=== PATIENT | male | born 1950 | race Hispanic/Latino ===

== ENCOUNTER 2017-12-30 15:47 | Emergency (ER) | payer OTHER ==
[2017-12-30] MEDS ORDERED: TETANUS/DIPHTHERIA TOXOID [ADULT] 0.5 ML VIAL IM ONE (16:03)
[2017-12-30] MEDS ORDERED: CEFAZOLIN SODIUM 1 GM VIAL ONE (16:32)
[2017-12-30] MEDS ORDERED: MORPHINE SULFATE 4 MG/1ML SYG ONE (16:32)
[2017-12-30] MEDS ORDERED: ONDANSETRON HCL 4 MG/2 ML VIAL ONE (16:32)
[2017-12-30] MEDS ORDERED: BUPIVACAINE/PF 0.5% 30ML VIAL ONE (16:32)
[2017-12-30] MEDS ORDERED: SODIUM CHLORIDE 0.9% 50 ML IV ONE (16:33)
[2017-12-30 16:44] LABS: CREATININE 1.2 mg/dL (0.5-1.5); POTASSIUM 3.9 mmol/L (3.5-5.1)
[2017-12-30] MEDS ORDERED: LIDOCAINE HCL-MPF 1% 2ML VIAL ONE (17:32)
== END 2017-12-30 18:44 | disposition home or self-care (01) ==
LOC: EDH 15:47
DX: S62.522A Displaced fracture of distal phalanx of left thumb, initial encounter for closed fracture (principal); S61.012A Laceration without foreign body of left thumb without damage to nail, initial encounter; I10 Essential (primary) hypertension; E78.00 Pure hypercholesterolemia, unspecified; Z88.8 Allergy status to other drugs, medicaments and biological substances; W27.0XXA Contact with workbench tool, initial encounter; Y93.89 Activity, other specified; Y92.098 Other place in other non-institutional residence as the place of occurrence of the external cause; Y99.8 Other external cause status
CPT/HCPCS: 12042; 29125; 36415; 73140; 80048; 90471; 90714; 96365; 96366; 96375; 99285; J0690; J2270; J2405; J3490 ×2

== ENCOUNTER → 2021-08-27 | Outpatient (CLI) | payer OTHER | END | disposition home or self-care (01) | LOC: SHCH 12:11 | PROVIDERS: ATTEND Student in an Organized Health Care Education/Training Program | DX: I36.1 Nonrheumatic tricuspid (valve) insufficiency (principal); I10 Essential (primary) hypertension; E11.9 Type 2 diabetes mellitus without complications; E78.5 Hyperlipidemia, unspecified; M71.22 Synovial cyst of popliteal space [Baker], left knee; R60.9 Edema, unspecified | CPT/HCPCS: 93306; 93970 ==

== ENCOUNTER 2022-09-25 05:48 | Day surgery (SDC) | payer OTHER ==
[2022-09-23 08:56] LABS: BASOPHILS % (AUTO) 0.7 % (0.0-5.0); EOSINOPHILS % (AUTO) 3.7 % (0.0-8.0); HEMATOCRIT 37.8 % (42-54); LYMPHOCYTES % (AUTO) 28.2 % (21.0-51.0); MEAN CORPUSCULAR HEMOGLOBIN 29.7 pg (27.0-33.0); MEAN CORPUSCULAR HGB CONC 33.1 g/dL (32.0-36.0); MEAN CORPUSCULAR VOLUME 89.8 fL (79-99); MONOCYTES % (AUTO) 6.6 % (3.0-13.0); NEUTROPHILS % (AUTO) 60.5 % (40.0-77.0); PLATELET COUNT (AUTO) 241 K/uL (130-400); RED BLOOD CELL COUNT(AUTO) 4.21 MIL/uL (4.50-6.20); WHITE BLOOD COUNT (AUTO) 7.1 K/uL (4.8-10.8)
[2022-09-23 08:57] VITALS: BP 119/64
[2022-09-23 09:06] LABS: CREATININE 0.8 mg/dL (0.5-1.5); POTASSIUM 3.9 mmol/L (3.5-5.1)
[2022-09-23 09:07] LABS: INR 0.96 (0.85-1.15); PROTHROMBIN TIME 10.5 SEC (9.6-11.6)
[2022-09-23 09:07] LABS: APPEARANCE,URINE CLEAR (CLEAR); BILIRUBIN,URINE NEGATIVE (NEGATIVE); COLOR,URINE YELLOW (YELLOW); GLUCOSE, URINE (UA) NEGATIVE (NEGATIVE); KETONES,URINE NEGATIVE (NEGATIVE); LEUKOCYTE ESTERASE ,URINE NEGATIVE Leu/uL (NEGATIVE); NITRATE,URINE NEGATIVE (NEGATIVE); OCCULT BLOOD,URINE NEGATIVE (NEGATIVE); PH,URINE 5.5 (5.0-8.0); PROTEIN,URINE NEGATIVE (NEGATIVE); UROBILINOGEN,URINE 0.2 mg/dL (0.2-1.0)
[2022-09-23 09:08] LABS: PARTIAL THROMBOPLASTIN TIME 27.9 SEC (26.3-35.5)
[2022-09-23 09:29] LABS: B-TYPE NATRIURETIC PEPTIDE 55 pg/mL (0-100)
[2022-09-25] VITALS (10 sets, daily range): BP systolic 100–127; BP diastolic 50–67
[~2022-09-25] VITALS: Ht 185.4 cm; Wt 107.1 kg
[~2022-09-25 05:48] MED LIST: AEC81 PO; ENAL20TA18 PO; FERS325 PO; ISOS30TA92 PO; METF-446 PO; METO25TA6 PO; ROSU40TA21 PO; TAMS-1 PO
[2022-09-25] MEDS ORDERED: 0.9%NACL 1000ML 1,000 ML IV ONE (06:25)
[2022-09-25] MEDS ORDERED: HEPARIN 10,000 UNIT/10ML (1,000 UNIT/ML) VIAL ONE (07:26)
[2022-09-25] MEDS ORDERED: VERAPAMIL HCL 2.5 MG/ML VIAL ONE (07:26)
[2022-09-25] MEDS ORDERED: NITROGLYCERIN 50MG VIAL ONE (07:26)
[2022-09-25] MEDS ORDERED: IOHEXOL 350 MG/ML 100ML INFUS..BTL IV ONE (07:26)
[2022-09-25] MEDS ORDERED: LIDOCAINE HCL 400MG/20ML VIAL ONE (07:27)
[2022-09-25] MEDS ORDERED: MIDAZOLAM HCL 1 MG/ML 2ML VIAL ONE (07:27)
[2022-09-25] MEDS ORDERED: FENTANYL CITRATE PF 50 MCG/1 ML 2ML VIAL ONE (07:27)
[2022-09-25] MEDS ORDERED: ATROPINE 1MG SYG IVP ONE (07:54)
[2022-09-25] MEDS ORDERED: GLUCAGON 1MG KIT 1 MG ML IM PRN (08:30)
[2022-09-25] MEDS ORDERED: DEXTROSE 50%-WATER 50 ML DISP.SYRIN IV PRN (08:30)
== END 2022-09-25 10:45 | disposition home or self-care (01) ==
LOC: DAH 05:48
PROVIDERS: ATTEND Student in an Organized Health Care Education/Training Program
DX: I25.119 Atherosclerotic heart disease of native coronary artery with unspecified angina pectoris (principal); I10 Essential (primary) hypertension; I83.893 Varicose veins of bilateral lower extremities with other complications; E11.8 Type 2 diabetes mellitus with unspecified complications; E78.2 Mixed hyperlipidemia; G47.33 Obstructive sleep apnea (adult) (pediatric); Z79.82 Long term (current) use of aspirin; Z79.84 Long term (current) use of oral hypoglycemic drugs; Z79.01 Long term (current) use of anticoagulants; Z79.899 Other long term (current) drug therapy; Z82.49 Family history of ischemic heart disease and other diseases of the circulatory system; Z80.1 Family history of malignant neoplasm of trachea, bronchus and lung; Z72.89 Other problems related to lifestyle; Z88.8 Allergy status to other drugs, medicaments and biological substances
CPT/HCPCS: 80048; 83880; 85025; 85610; 85730; 81003; 36415; 71045; 93005; 93458; 82948 ×2; C1769; C1894; J3010; J3490 ×3; J7030; J1644 ×2; J2250; Q9967; A4215; A4222; A6260; A4221; A4663; A4216; A6206; A6258; A4606; Q9965; A4223 ×3; 99156; 99157; J0461

== ENCOUNTER → 2024-02-04 | Outpatient (CLI) | payer OTHER ==
[~2024-02-04] MED LIST changes: +ENAL-91 PO; -ENAL20TA18 PO; -METO25TA6 PO; -ROSU40TA21 PO; +ROSU40TA70 PO
== END | disposition home or self-care (01) ==
LOC: SHCH 10:14
PROVIDERS: ATTEND Student in an Organized Health Care Education/Training Program
DX: I25.10 Atherosclerotic heart disease of native coronary artery without angina pectoris (principal)
CPT/HCPCS: 93306

== ENCOUNTER 2024-03-30 23:36 | Observation (INO) | payer MEDICARE, OTHER ==
[~2024-03-30] VITALS: Ht 185.4 cm; Wt 109.8 kg
[~2024-03-30 23:36] MED LIST changes: -ROSU40TA70 PO; +ROSU40TA88 PO
[2024-03-31] MEDS ORDERED: HEParin 25,000 UNITS/250ML D5W 250 ML IV PRN
[2024-03-31] MEDS: morPHINE 4 MG SYG IVP ONE (00:07)
[2024-03-31] MEDS: ASPIRIN 81MG CHEW TAB ONE (00:07)
[2024-03-31] MEDS: ondanSETRON 4MG INJ IVP ONE (00:07)
[2024-03-31] MEDS: NITROGLYCERIN 1GM OINT 1 INCH/1GM TD ONE (00:08)
[2024-03-31 00:12] LABS: INR 0.95 (0.85-1.15); PROTHROMBIN TIME 10.3 SEC (9.6-11.6)
[2024-03-31 00:13] LABS: PARTIAL THROMBOPLASTIN TIME 25.6 SEC (26.3-35.5)
[2024-03-31 00:14] LABS: CREATININE 1.3 mg/dL (0.5-1.3); POTASSIUM 3.7 mmol/L (3.5-5.1)
[2024-03-31 00:35] LABS: BASOPHILS # (AUTO) 0.08 K/uL (0.00-0.20); EOSINOPHILS # (AUTO) 0.37 K/uL (0.00-0.70); EOSINOPHILS % (AUTO) 4.5 % (0.0-8.0); HEMATOCRIT 37.9 % (42-54); IMMATURE GRANULOCYTE ABSOLUTE 0.02 K/uL (0-1); LYMPHOCYTES # (AUTO) 2.8 K/uL (1.0-4.8); LYMPHOCYTES % (AUTO) 34.1 % (21.0-51.0); MEAN CORPUSCULAR HEMOGLOBIN 29.6 pg (27.0-33.0); MEAN CORPUSCULAR HGB CONC 33.8 g/dL (32.0-36.0); MEAN CORPUSCULAR VOLUME 87.7 fL (79-99); MONOCYTES # (AUTO) 0.7 K/uL (0.1-1.0); NEUTROPHILS # (AUTO) 4.3 K/uL (1.8-7.7); NEUTROPHILS % (AUTO) 52.2 % (40.0-77.0); PLATELET COUNT (AUTO) 271 K/uL (130-400); RED BLOOD CELL COUNT(AUTO) 4.32 MIL/uL (4.50-6.20); RED CELL DISTRIBUTION WIDTH 13.6 % (11.0-15.5); WHITE BLOOD COUNT (AUTO) 8.3 K/uL (4.8-10.8)
[2024-03-31] MEDS: ASPIRIN 325MG TAB PO ONE (00:41)
[2024-03-31 01:02] LABS: B-TYPE NATRIURETIC PEPTIDE 17 pg/mL (0-100)
[2024-03-31] MEDS: HEParin 5,000 UNIT VIAL IV PRN (01:15)
[2024-03-31 02:00] VITALS: TEMP 98.2
[2024-03-31] MEDS ORDERED: ondanSETRON 4MG INJ IV PRN (04:00)
[2024-03-31] MEDS ORDERED: ketOROlac 15MG/ML VIAL (15MG/ML) IV PRN (04:00)
[2024-03-31] MEDS ORDERED: hydrALAZine 20MG/ML VIAL IV PRN (04:00)
[2024-03-31] MEDS ORDERED: MAGNESIUM 2GM PREMIX 50ML 50 ML IV PRN (04:00)
[2024-03-31] MEDS ORDERED: GLUCAGON 1MG KIT 1 MG ML IM PRN (04:00)
[2024-03-31] MEDS ORDERED: acetaMINOPHEN 325 MG TAB PO PRN ×2 (04:00)
[2024-03-31] MEDS ORDERED: DEXTROSE 50%-WATER 50 ML DISP.SYRIN IV PRN (04:00)
[2024-03-31] MEDS ORDERED: NITROGLYCERIN 0.4 MG SL TAB SL PRN (04:00)
[2024-03-31] MEDS ORDERED: PoTASSium chloRIDE 20MEQ/100ML 100 ML IV PRN (04:00)
[2024-03-31] MEDS: 0.9%NACL 1000ML 1,000 ML IV SCH (04:55)
[2024-03-31] MEDS: INSULIN humuLIN R 100 UNIT/ML 3ML SQ SCH (07:30)
[2024-03-31 08:06] LABS: INR 1.04 (0.85-1.15); PROTHROMBIN TIME 11.2 SEC (9.6-11.6)
[2024-03-31 08:42] LABS: HEMOGLOBIN A1C 5.9 % (4.0-6.0)
[2024-03-31 08:43] LABS: BASOPHILS # (AUTO) 0.06 K/uL (0.00-0.20); BASOPHILS % (AUTO) 0.8 % (0.0-5.0); EOSINOPHILS # (AUTO) 0.36 K/uL (0.00-0.70); HEMATOCRIT 36.4 % (42-54); IMMATURE GRANULOCYTE ABSOLUTE 0.03 K/uL (0-1); LYMPHOCYTES # (AUTO) 2.3 K/uL (1.0-4.8); LYMPHOCYTES % (AUTO) 32.4 % (21.0-51.0); MEAN CORPUSCULAR HEMOGLOBIN 29.7 pg (27.0-33.0); MEAN CORPUSCULAR HGB CONC 33.2 g/dL (32.0-36.0); MEAN CORPUSCULAR VOLUME 89.4 fL (79-99); MONOCYTES # (AUTO) 0.5 K/uL (0.1-1.0); MONOCYTES % (AUTO) 6.9 % (3.0-13.0); NEUTROPHILS # (AUTO) 3.9 K/uL (1.8-7.7); NEUTROPHILS % (AUTO) 54.5 % (40.0-77.0); PLATELET COUNT (AUTO) 229 K/uL (130-400); RED BLOOD CELL COUNT(AUTO) 4.07 MIL/uL (4.50-6.20); RED CELL DISTRIBUTION WIDTH 13.6 % (11.0-15.5); WHITE BLOOD COUNT (AUTO) 7.2 K/uL (4.8-10.8)
[2024-03-31 08:54] LABS: ALBUMIN 3.5 g/dL (3.5-5.0); BILIRUBIN,TOTAL 0.5 mg/dL (0.2-1.0); MAGNESIUM 1.8 mg/dL (1.80-2.40); POTASSIUM 4.3 mmol/L (3.5-5.1); THYROID STIMULATING HORMONE 5.43 uIU/mL (0.36-3.74); TOTAL PROTEIN, SERUM 7.1 g/dL (6.0-8.3)
[2024-03-31 10:02] LABS: ERYTHROCYTE SEDIMENTATION RATE 5 MM/HR (0-20)
[2024-03-31 12:08] VITALS: BP 122/67; PULSE 55; RESP 17; O2SAT 100
[2024-03-31] MEDS: ASPIRIN 81 MG EC TAB PO SCH (12:13)
[2024-03-31] MEDS: FAMOTIDINE 20MG VIAL IV SCH (12:13)
[2024-03-31] MEDS: RANOLAZINE 500 MG TAB.SR.12H PO ONE (12:15)
[2024-03-31] MEDS ORDERED: Nitroglycerin 0.4MG Sl Tab SL (14:05)
[2024-03-31] MEDS ORDERED: RANO500T2 PO (14:05)
== END 2024-03-31 15:29 | disposition home or self-care (01) ==
LOC: EDH 23:36 → EDHIP 23:40 → UNDOADMOB 03-31 03:45 → INTOOBSV 03-31 03:45 → EDHIP 03-31 03:45 → 2CV 03-31 10:44 → EDHIP 03-31 10:44 → 2CV 03-31 13:19 → EDHIP 03-31 13:19 → UNDODISOB 03-31 15:29 → EDHIP 03-31 15:29
PROVIDERS: ADMIT Internal Medicine; ATTEND Internal Medicine
DX: I12.9 Hypertensive chronic kidney disease with stage 1 through stage 4 chronic kidney disease, or unspecified chronic kidney disease (principal); E11.22 Type 2 diabetes mellitus with diabetic chronic kidney disease; N18.30 Chronic kidney disease, stage 3 unspecified; E66.9 Obesity, unspecified; G47.33 Obstructive sleep apnea (adult) (pediatric); D63.1 Anemia in chronic kidney disease; E11.649 Type 2 diabetes mellitus with hypoglycemia without coma; I25.10 Atherosclerotic heart disease of native coronary artery without angina pectoris; N40.0 Benign prostatic hyperplasia without lower urinary tract symptoms; F10.10 Alcohol abuse, uncomplicated; I24.9 Acute ischemic heart disease, unspecified; E78.5 Hyperlipidemia, unspecified; Z96.652 Presence of left artificial knee joint; Z68.31 Body mass index [BMI] 31.0-31.9, adult; Z79.4 Long term (current) use of insulin; Z88.6 Allergy status to analgesic agent; Z79.84 Long term (current) use of oral hypoglycemic drugs; Y90.9 Presence of alcohol in blood, level not specified
CPT/HCPCS: 82550 ×2; 84484 ×3; 80048; 83880; 85025 ×2; 85610 ×2; 85730 ×2; 36415 ×2; 71045; 93005; 96372; 96361; 99285; 83036; 84443; 83735; 80061; 80053; 85651; 82948 ×2; 93306; 93356; 96374; 96375; G0378 ×15; J2405; J2270; J3490; J1644 ×2

== ENCOUNTER → 2024-07-12 | Outpatient (CLI) | payer OTHER ==
[~2024-07-12] MED LIST changes: +Nitroglycerin 0.4MG Sl Tab SL; +RANO500T2 PO
--- NOTE | 2024-07-14 07:44 | HMCSR ---
APPROVED REPORT Indications i71.40 Duplex Results A/PTransverseLongitudinalVelocityWaveform Proximal Aorta 2.78cm3.29cm2.82cm87.70 cm/sec Mid Aorta 2.24cm2.30cm2.04cm93.80 cm/sec Distal Aorta 2.17cm2.02cm2.31gz025.30 cm/sec Rt. Common Iliac Artery1.05cm1.21cm1.46ft762.40 cm/sec Lt. Common Iliac Artery 1.15cm1.20cm1.29db631.60 cm/sec Techologist Impression The abdominal aorta and the right and left common iliac arteries are patent and normal in size withou t evidence of aneurysm. Multiphasic waveforms in the bilateral IRVIN, EIA and CFAs. Conclusion The abdominal aorta and the right and left common iliac arteries are patent and normal in size withou t evidence of aneurysm. Multiphasic waveforms in the bilateral IRVIN, EIA and CFAs. Conclusion The abdominal aorta and the right and left common iliac arteries are patent and normal in size withou t evidence of aneurysm. Multiphasic waveforms in the bilateral IRVIN, EIA and CFAs.
--- NOTE | 2024-07-14 07:45 | HMCSR ---
APPROVED REPORT Laterality: Bilateral Indications r09.89 Doppler Spectral Velocity Analysis PSV / EDVPSV / EDV ECA (R) 78 / cm/sECA (L) 110 / cm/s dICA (R) 104 / 41 cm/sdICA (L) 81 / 35 cm/s Papa (R) 100 / 42 cm/smICA (L) 85 / 33 cm/s pICA (R) 50 / 21 cm/spICA (L) 64 / 19 cm/s dCCA (R) 68 / 17 cm/sdCCA (L) 82 / 20 cm/s mCCA (R) 84 / 22 cm/smCCA (L) 109 / 24 cm/s pCCA (R) 87 / 20 cm/spCCA (L) 89 / 21 cm/s Vert (R) 31 / cm/sVert (L) 44 / cm/s Subl. (R) 217 / cm/sSubl. (L) 112 / cm/s ICA/CCA 1.20ICA/CCA 0.78 Technologist Impression Minimal to mild plaque noted in the bilateral carotids, without hemodynamic significance. Bilateral v ertebral arteries appear antegrade. Conclusion Minimal to mild plaque noted in the bilateral carotids, without hemodynamic significance. Bilateral v ertebral arteries appear antegrade. Conclusion Minimal to mild plaque noted in the bilateral carotids, without hemodynamic significance. Bilateral v ertebral arteries appear antegrade.
== END | disposition home or self-care (01) ==
LOC: SHCH 07:36
PROVIDERS: ATTEND Student in an Organized Health Care Education/Training Program
DX: I71.40 Abdominal aortic aneurysm, without rupture, unspecified (principal); R09.89 Other specified symptoms and signs involving the circulatory and respiratory systems
CPT/HCPCS: 93880; 93978